=== PATIENT | male | born 1970 | race African-American/Black ===

== ENCOUNTER 2019-01-10 15:07 | Emergency (ER) | payer BC ==
[~2019-01-10] VITALS: Ht 185.4 cm; Wt 89.4 kg
[2019-01-10 16:38] VITALS: BP 137/103
== END 2019-01-10 16:40 | disposition home or self-care (01) ==
LOC: ER 15:07
DX: L30.1 Dyshidrosis [pompholyx] (principal); J44.9 Chronic obstructive pulmonary disease, unspecified

== ENCOUNTER 2019-05-19 12:56 | Emergency (ER) | payer BC ==
[~2019-05-19] VITALS: Ht 185.4 cm; Wt 93.0 kg
[2019-05-19] MEDS ORDERED: SYMBICORT160 MCG/4. INH (13:50)
[2019-05-19] MEDS ORDERED: ALBUTEROL2.5 MG/0.5 INH (13:51)
[2019-05-19] MEDS ORDERED: DOXYCYCLINE 10100 MG PO (14:19)
[2019-05-19] MEDS ORDERED: PREDNISONE 20 M20 MG PO (14:19)
[2019-05-19 14:47] VITALS: BP 153/108
== END 2019-05-19 14:48 | disposition home or self-care (01) ==
LOC: ER 12:56
DX: J44.1 Chronic obstructive pulmonary disease with (acute) exacerbation (principal)